=== PATIENT | male | born 1975 ===

== ENCOUNTER 2016-08-14 11:58 | Emergency (ER) | payer OTHER, BC ==
[2016-08-14 13:24] VITALS: BP 117/69
--- NOTE | 2016-08-14 13:41 | UC ---
Respiratory Complaint HPI - HPI Summary HPI Summary: 2 days of cough, fever, sore throat, body aches and chills - History of Current Complaint Chief Complaint: UCRespiratory Stated Complaint: COUGH Time Seen by Provider: 08/14/16 13:29 Hx Obtained From: Patient Onset/Duration: Sudden Onset, Lasting Days - 2, Still Present Timing: Constant Severity Initially: Moderate Severity Currently: Moderate Pain Intensity: 6 Character: Cough: Nonproductive Aggravating Factors: Nothing Alleviating Factors: OTC Meds - Ibuprofen Associated Signs And Symptoms: Positive: Fever, Chills, Nasal Congestion, Sinus Discomfort - Allergies/Home Medications Allergies/Adverse Reactions: Allergies Allergy/AdvReac Type Severity Reaction Status Date / Time No Known Allergies Allergy Verified 08/14/16 13:24 PMH/Surg Hx/FS Hx/Imm Hx Previously Healthy: No Respiratory History Of: Reports: Asthma - Surgical History Surgical History: None - Family History Known Family History: Positive: None Family History: denies cardiovascular issues in family lineage - Social History Occupation: Student Lives: With Family Alcohol Use: Occasionally Substance Use Type: None Smoking Status (MU): Light Every Day Tobacco Smoker Amount Used/How Often: 1/2ppd Review of Systems Constitutional: Fever, Chills, Fatigue Skin: Negative Eyes: Negative ENT: Sore Throat, Ear Ache Respiratory: Cough Cardiovascular: Negative Gastrointestinal: Negative Genitourinary: Negative Motor: Negative Neurovascular: Negative Musculoskeletal: Arthralgia, Myalgia Neurological: Headache Psychological: Negative All Other Systems Reviewed And Are Negative: Yes Physical Exam Triage Information Reviewed: Yes Appearance: Well-Nourished, Ill-Appearing, Pain Distress Vital Signs: Initial Vital Signs Temp 102.9 F 08/14/16 13:15 Pulse 80 08/14/16 13:15 Resp 20 08/14/16 13:15 BP 117/69 08/14/16 13:15 Pulse Ox 98 08/14/16 13:15 Vital Signs Reviewed: Yes Eye Exam: Normal Eyes: Positive: Conjunctiva Clear ENT Exam: Normal ENT: Positive: Normal ENT inspection, Hearing grossly normal, Pharyngeal erythema, Nasal congestion, TMs normal. Negative: Nasal drainage, Tonsillar swelling, Tonsillar exudate, Trismus, Muffled/hoarse voice Dental Exam: Normal Neck exam: Normal Neck: Positive: Supple, Nontender, No Lymphadenopathy Respiratory Exam: Normal Respiratory: Positive: Chest non-tender, Lungs clear, Normal breath sounds, No respiratory distress, No accessory muscle use Cardiovascular Exam: Normal Cardiovascular: Positive: RRR, No Murmur, Pulses Normal, Brisk Capillary Refill Musculoskeletal Exam: Normal Musculoskeletal: Positive: Strength Intact, ROM Intact, No Edema Neurological Exam: Normal Neurological: Positive: Alert, Muscle Tone Normal Psychological Exam: Normal Psychological: Positive: Normal Response To Family Skin Exam: Normal UC Diagnostic Evaluation - Laboratory O2 Sat by Pulse Oximetry: 98 Diagnostic Studies Comment: Influenza A (+) Influenza B(-) Strep (-) Respiratory Course/Dx - Course Course Of Treatment: Tamiflu, rest, tylenol, ibuprofen increase fluids re-check prn - Differential Dx/Diagnosis Differential Diagnosis/HQI/PQRI: Asthma, Bronchitis, Influenza, Lower Resp Infection, Sinusitis Provider Diagnoses: Influenza A Discharge - Discharge Plan Condition: Stable Disposition: HOME Prescriptions: Oseltamivir CAP* [Tamiflu CAP*] 75 mg PO BID #10 cap Patient Education Materials: Acetaminophen (By mouth), Ibuprofen (By mouth), Influenza (ED) Referrals: Denise Hogan DIRECTOR NEWS [Primary Care Provider] - If Needed
[2016-08-14] MEDS ORDERED: Ibuprofen TAB* 600 MG PO ONE (13:46)
== END 2016-08-14 14:30 | disposition home or self-care (01) ==
LOC: UCEAST 11:58
DX: J09.X2 Influenza due to identified novel influenza A virus with other respiratory manifestations (principal); F17.210 Nicotine dependence, cigarettes, uncomplicated
CPT/HCPCS: 87502; 87651; 99212; A9270-GY; G0463

== ENCOUNTER 2016-09-27 08:15 | Emergency (ER) | payer BC, OTHER ==
[2016-09-27 08:34] VITALS: BP 110/65
--- NOTE | 2016-09-27 08:51 | UC ---
Hand/Wrist HPI - HPI Summary HPI Summary: WAS LIFTING WEIGHTS YESTERDAY AND AFTERWARDS HAD ONSET OF RIGHT WRIST PAIN MEDIALLY. NO FALL OR DISCRETE INJURY HE CAN RECALL. NO PAIN IN THE HAND OR FINGERS. - History Of Current Complaint Chief Complaint: UCUpperExtremity Stated Complaint: WRIST INJURY Time Seen by Provider: 09/27/16 08:40 Hx Obtained From: Patient Onset/Duration: Sudden Onset, Lasting Days, Still Present Severity Initially: Moderate Severity Currently: Moderate Pain Intensity: 7 Pain Scale Used: 0-10 Numeric Character Of Pain: Sharp Aggravating Factor(s): Movement Alleviating: Rest Associated Signs And Symptoms: Positive: Redness. Negative: Swelling, Bruising , Fever, Weakness, Numbness/Tingling Related History: Dominant Hand Right - Allergies/Home Medications Allergies/Adverse Reactions: Allergies Allergy/AdvReac Type Severity Reaction Status Date / Time No Known Allergies Allergy Verified 08/14/16 13:24 Home Medications: Home Medications NK [No Home Medications Reported] 09/27/16 [History Confirmed 09/27/16] PMH/Surg Hx/FS Hx/Imm Hx Cardiovascular History Of: Reports: Cardiac Disorders - arrhythmia Respiratory History Of: Reports: Asthma - allergy induced - Surgical History Surgical History: None - Family History Known Family History: Negative: Hypertension Family History: denies cardiovascular issues in family lineage - Social History Alcohol Use: Occasionally Substance Use Type: None Smoking Status (MU): Light Every Day Tobacco Smoker Amount Used/How Often: 1/2ppd Have You Smoked in the Last Year: Yes Review of Systems Constitutional: Negative Skin: Other - ERYTHEMA OVER RIGHT WRIST ULNAR STYLOID Respiratory: Negative Cardiovascular: Negative Gastrointestinal: Negative Musculoskeletal: Arthralgia, Decreased ROM All Other Systems Reviewed And Are Negative: Yes Physical Exam Triage Information Reviewed: Yes Appearance: Well-Appearing, No Pain Distress, Well-Nourished Vital Signs: Initial Vital Signs Temp 98.4 F 09/27/16 08:26 Pulse 68 09/27/16 08:26 Resp 18 09/27/16 08:26 BP 110/65 09/27/16 08:26 Pulse Ox 98 09/27/16 08:26 Vital Signs Reviewed: Yes Eyes: Positive: Conjunctiva Clear ENT: Positive: Hearing grossly normal Neck: Positive: Supple Respiratory: Positive: No respiratory distress, No accessory muscle use Cardiovascular: Positive: Pulses Normal Abdomen Description: Positive: Soft Musculoskeletal: Positive: No Edema, ROM Limited @ - RIGHT WRIST, Other: - TTP OVER RIGHT WRIST ULNAR STYLOID PROCESS Neurological: Positive: Alert Psychological: Positive: Age Appropriate Behavior Skin: Positive: Other - ERYTHEMA OVERLYING RIGHT WRIST ULNAR STYLOID PROCESS Diagnostics - Radiology RIGHT WRIST XRAY Xray Interpretation: No Acute Changes Radiology Interpretation Completed By: Radiologist Hand/Wrist Course/Dx - Differential Dx/Diagnosis Provider Diagnoses: RIGHT WRIST SPRAIN Discharge - Discharge Plan Condition: Stable Disposition: HOME Patient Education Materials: Wrist Sprain (ED) Referrals: Denise Hogan NP [Primary Care Provider] - If Needed Additional Instructions: XRAY TODAY UNREMARKABLE. REST, ICE, ELEVATE. SPLINT FOR COMFORT. YOU SHOULD IMPROVE SIGNIFICANTLY OVER THE NEXT FEW DAYS. SEEK FOLLOW-UP IF YOU ARE NOT IMPROVING EXPECTED.
--- NOTE | 2016-09-27 09:25 | RAD ---
Indication: Right wrist pain 3 views of the wrist demonstrates no fracture. No other bone or joint abnormality is identified. IMPRESSION: NO FRACTURE OF THE WRIST IS NOTED.
== END 2016-09-27 09:41 | disposition home or self-care (01) ==
LOC: UCEAST 08:15
DX: S63.501A Unspecified sprain of right wrist, initial encounter (principal); X58.XXXA Exposure to other specified factors, initial encounter; Y93.B3 Activity, free weights; Y92.9 Unspecified place or not applicable; F17.210 Nicotine dependence, cigarettes, uncomplicated
CPT/HCPCS: 99211; 99212; G0463